=== PATIENT | male | born 1955 | race Caucasian/White ===

== ENCOUNTER → 2018-02-11 | Outpatient (CLI) | payer OTHER ==
[~2018-02-11] MED LIST: IBUP-1459 PO
--- NOTE | 2018-02-11 17:51 | DIAGNOSTIC IMAGING REPORT ---
CHEST 2 VIEWS ROUTINE HISTORY: 62 years-old Male R05 Cough productive of purulent [id number] Lung cr acute cough and fever COMPARISON: Abdominal radiographs 03/22/2014 TECHNIQUE: PA and lateral views of the chest FINDINGS: Cardiac silhouette is mildly enlarged. Left subclavian Osgnnk-i-Dvcu catheter is noted with distal tip oriented transversely with distal tip to the right of midline within the expected region of the SVC brachiocephalic confluence. Mild right hemidiaphragmatic elevation. There is no pneumothorax, pleural effusion or overt pulmonary edema. Subtle ill-defined opacities are noted within the lingula on both the frontal and lateral views. Mild multilevel endplate spurring about the spine. Degenerative changes are seen within the bilateral shoulders. IMPRESSION: Ill-defined opacities of the lingula may reflect pneumonia within the appropriate clinical setting. The above report was generated using voice recognition software. It may contain grammatical, syntax or spelling errors. Electronically signed by: Vic Shen M.D. 02/11/2018 5:49 PM Dictated Date/Time: 02/11/2018 5:47 PM
== END | disposition home or self-care (01) ==
LOC: C.RAD 17:28
PROVIDERS: ATTEND Internal Medicine
DX: R91.8 Other nonspecific abnormal finding of lung field (principal); R50.9 Fever, unspecified; R05 Cough; R09.89 Other specified symptoms and signs involving the circulatory and respiratory systems

== ENCOUNTER → 2018-05-29 | Outpatient (CLI) | payer OTHER ==
[~2018-05-29] MED LIST changes: +ASPCH81X PO; +CARV12.52 PO; +COEN1CAP17 PO; -IBUP-1459 PO; +LEVA45AE INH; +LPT/40 PO; +MULT-506 PO; +OMEG10007 PO; +VALS320T PO
--- NOTE | 2018-05-29 08:44 | DIAGNOSTIC IMAGING REPORT ---
CHEST 2 VIEWS ROUTINE CLINICAL HISTORY: 62 years-old Male presenting with J90 Pleural effusion. TECHNIQUE: PA and lateral views of the chest were obtained. COMPARISON: 05/24/2018. FINDINGS: Left subclavian Mediport terminates in the left brachiocephalic vein. Cardiac silhouette remains mildly enlarged. Decreased pulmonary vascular prominence. Improved aeration of the lung bases. No new focal opacity. Trace left pleural effusion may be present. No pneumothorax. Degenerative changes of the thoracic spine. Upper abdomen normal. IMPRESSION: 1. Cardiomegaly with decreased volume overload. 2. Trace left pleural effusion may be present. 3. Improved aeration of the lung bases. Electronically signed by: Tex Francis M.D. 05/29/2018 8:42 AM Dictated Date/Time: 05/29/2018 8:32 AM
== END | disposition home or self-care (01) ==
LOC: C.RAD1850 08:14
PROVIDERS: ATTEND Surgery
DX: J90 Pleural effusion, not elsewhere classified (principal); I51.7 Cardiomegaly